=== PATIENT | male | born 1970 | race Caucasian/White ===

== ENCOUNTER 2019-04-15 16:35 | Emergency (ER) | payer OTHER ==
--- NOTE | 2019-04-15 16:59 | ED Physician Documentation ---
General Adult - HISTORIAN Historian: patient - HPI Stated Complaint: cellulitis Chief Complaint: General Adult Onset: days ago (5) Timing: still present Severity: moderate Further Comments: yes (Pt is a 48 yo male with cellulitis/abscess of L hip. Pt has had similar infections recently that improved with amoxicillin. No fever. Occasional nausea.) - ROS CONST: no problems, other EYES/ENT: none CVS/RESP: none GI/: nausea MS/SKIN/LYMPH: other (cellulitis/abscess L hip) - PAST HX Past History: other (nephrectomy (cancer).) Allergies/Adverse Reactions: Allergies Allergy/AdvReac Type Severity Reaction Status Date / Time procaine HCl Allergy Verified 04/15/19 16:48 Home Medications: Ambulatory Orders Medication Instructions Recorded Omeprazole 20 mg PO DAILY PRN u2 08/28/12 - SOCIAL HX Smoking History: non-smoker - FAMILY HX Family History: No - VITAL SIGNS Vital Signs: Vital Signs Temp Pulse Resp BP Pulse Ox 97.4 F L 100 H 20 184/104 97 04/15/19 16:43 04/15/19 16:43 04/15/19 16:43 04/15/19 16:43 04/15/19 16:43 - REVIEWED ASSESSMENTS Nursing Assessment Reviewed: Yes Vitals Reviewed: Yes Progress - Progress Progress: Rx Doxycycline 100 mg. Take one by mouth every 12 hours for 14 days. Rx Zofran 4 mg ODT. Take one every 8 hours as needed for nausea. Rx [place] (5/325). Take one or two tablets by mouth every 4 to 6 hours as needed for moderate to severe pain General Adult Physical Exam - PHYSICAL EXAM GENERAL APPEARANCE: mild distress EENT: pharynx normal NECK: normal inspection, supple RESPIRATORY: no resp distress, chest non-tender, breath sounds normal CVS: reg rate & rhythm, heart sounds normal BACK: normal inspection SKIN: other (abscess L hip with induration, 4 cm and surrounding erythema, warm, tender.) EXTREMITIES: non-tender, normal range of motion, no evidence of injury NEURO: oriented X3, motor nml, sensation nml Discharge Clincal Impression: Cellulitis Qualifiers: Site of cellulitis: other site Qualified Code(s): L03.818 - Cellulitis of other sites Condition: Stable Disposition: 01 HOME, SELF-CARE Decision to Admit: NO Decision Time: 17:05
[2019-04-15 17:15] VITALS: BP 168/101
== END 2019-04-15 17:15 | disposition home or self-care (01) ==
LOC: ED 16:35
DX: L03.116 Cellulitis of left lower limb (principal)
CPT/HCPCS: 99283; 99284